=== PATIENT | female | born 2000 | race Caucasian/White ===

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

== ENCOUNTER 2023-03-23 19:23 | Emergency (ER) | payer SELFPAY ==
[~2023-03-23] VITALS: Ht 157.5 cm; Wt 49.9 kg
[2023-03-23 20:52] LABS: Influenza A, PCR NEGATIVE (NEGATIVE); Influenza B, PCR NEGATIVE (NEGATIVE); Resp Syncytial Virus, PCR NEGATIVE (NEGATIVE); SARS-Cov-2 (COVID-19) PCR, MMC NEGATIVE (NEGATIVE)
[2023-03-23] MEDS ORDERED: HYDPAM25 PO (23:13)
[2023-03-23 23:18] VITALS: BP 124/8
== END 2023-03-23 23:17 | disposition home or self-care (01) ==
LOC: ER 19:23
PROVIDERS: Student in an Organized Health Care Education/Training Program
DX: F41.9 Anxiety disorder, unspecified (principal); R11.2 Nausea with vomiting, unspecified; Z20.822 Contact with and (suspected) exposure to COVID-19; Z88.0 Allergy status to penicillin
CPT/HCPCS: 0241U; 81025; 93005; 93010; 99283-25; A9270